=== PATIENT | male | born 1990 | race African-American/Black ===

== ENCOUNTER → 2019-02-10 | Outpatient (CLI) | payer OTHER ==
--- NOTE | 2019-02-10 16:36 | Diagnostic Imaging Report ---
EXAMINATION: CHEST 2 VIEWS INDICATION: Chest pain, shortness of breath COMPARISON: None FINDINGS: LINES/TUBES:None LUNGS:The lungs are well-inflated. No focal consolidation or pulmonary edema. PLEURA:No pleural effusion or pneumothorax. MEDIASTINUM:The cardiomediastinal silhouette appears normal in size and shape. BONES/SOFT TISSUES:No acute osseous injury. ABDOMEN:No free air under the diaphragm. IMPRESSION: No focal pneumonia or pulmonary edema. Signed by: Haven Frankel MD on 02/10/2019 4:32 PM
--- NOTE | 2019-02-10 16:39 | Diagnostic Imaging Report ---
EXAMINATION: HAND THREE VIEWS BILATERAL INDICATION: No clubbing, hand swelling COMPARISON: None FINDINGS: Left hand: No acute fracture or dislocation. Alignment appears anatomic. The soft tissues appear unremarkable. No central degenerative change. No erosions. Right hand: No acute fracture or dislocation. Alignment appears anatomic. The soft tissues appear unremarkable. No central degenerative change. No erosions. IMPRESSION: No acute osseous injury. No evidence of erosive arthritis. Signed by: Haven Frankel MD on 02/10/2019 4:36 PM
== END ==
LOC: RAD 15:52
PROVIDERS: ATTEND Family Medicine
DX: R07.9 Chest pain, unspecified (principal); R06.02 Shortness of breath; M79.89 Other specified soft tissue disorders; R68.3 Clubbing of fingers
CPT/HCPCS: 71046